=== PATIENT | female | born 1945 | race Asian ===

== ENCOUNTER 2017-08-13 13:20 | Emergency (ER) | payer MEDICARE, OTHER ==
[~2017-08-13] VITALS: Ht 152.4 cm; Wt 63.6 kg
[~2017-08-13 13:20] MED LIST: AMLO2.5T29 PO; DOCU50CA5 PO; ENAL10TA PO; GLIP5TAB3 PO; HYDR25TA PO; LEVO75TA4 PO; LORA-703 PO; METF10002 PO
[2017-08-13 13:37] LABS: GLUCOSE,POINT OF CARE 157 MG/DL (70-110)
[2017-08-13] MEDS ORDERED: DSS100 PO (13:43)
[2017-08-13] MEDS ORDERED: AMLO-511 PO (13:43)
[2017-08-13] MEDS ORDERED: PERTUSS(ACELL),DIPH,TET VAC/PF 0.5 ML VIAL IM ONE (13:45)
[2017-08-13] MEDS ORDERED: BACITRACIN 0.9 GM PACKET OINTMENT TP ONE (14:15)
[2017-08-13 16:15] VITALS: BP 148/88
== END 2017-08-13 16:28 | disposition home or self-care (01) ==
LOC: EMS 13:21
DX: S01.01XA Laceration without foreign body of scalp, initial encounter (principal); S13.4XXA Sprain of ligaments of cervical spine, initial encounter; E11.9 Type 2 diabetes mellitus without complications; I10 Essential (primary) hypertension; E03.9 Hypothyroidism, unspecified; Z87.440 Personal history of urinary (tract) infections; W19.XXXA Unspecified fall, initial encounter; Y93.01 Activity, walking, marching and hiking; Y92.89 Other specified places as the place of occurrence of the external cause; Y99.8 Other external cause status
CPT/HCPCS: 12002; 70450; 72125; 82962; 90471; 90715; 93005; 99285

== ENCOUNTER 2019-01-15 20:11 | Emergency (ER) | payer MEDICARE, OTHER ==
[~2019-01-15] VITALS: Ht 152.4 cm; Wt 63.6 kg
[~2019-01-15 20:11] MED LIST changes: +AMLO-511 PO; -AMLO2.5T29 PO; -DOCU50CA5 PO; +DSS100 PO; +METF-446 PO; -METF10002 PO
[2019-01-15 20:29] LABS: GLUCOSE,POINT OF CARE 142 MG/DL (70-110)
[2019-01-15] MEDS ORDERED: ACETAMINOPHEN 325 MG TABLET PO ONE (21:30)
[2019-01-15 22:57] VITALS: BP 150/98
== END 2019-01-15 23:11 | disposition home or self-care (01) ==
LOC: EMS 20:12
DX: S09.90XA Unspecified injury of head, initial encounter (principal); I10 Essential (primary) hypertension; E03.9 Hypothyroidism, unspecified; E11.9 Type 2 diabetes mellitus without complications; Z79.84 Long term (current) use of oral hypoglycemic drugs; Z79.899 Other long term (current) drug therapy; W01.198A Fall on same level from slipping, tripping and stumbling with subsequent striking against other object, initial encounter; Y93.89 Activity, other specified; Y92.89 Other specified places as the place of occurrence of the external cause; Y99.8 Other external cause status
CPT/HCPCS: 70450